=== PATIENT | female | born 1960 | race Caucasian/White ===

== ENCOUNTER 2019-07-14 18:02 | Observation (INO) | payer OTHER, SELFPAY ==
[2019-07-14] VITALS (14 sets, daily range): BP systolic 139–162; BP diastolic 75–99; PULSE 72–87; RESP 15–19; TEMP 36.8–36.9; O2SAT 97–100; BMI 32.0; BMI 34.1; BMI 33.7; BMI 33.8
--- NOTE | 2019-07-14 18:47 | CT_ITS ---
We are attempting to reach an attending provider to discuss findings. An addendum with communication details will be sent when the communication is complete. STUDY: CT BRAIN WITHOUT CONTRAST REASON FOR EXAM: Female, 59 years old. PRICE/DIZZINESS/APHASIA/STROKE ALERT RADIATION DOSAGE (If Supplied By Facility): CTDIvol = ( 44.99 ) mGy, DLP = ( 796.11 ) mGycm TECHNIQUE: Transaxial CT imaging of the brain was performed without administration of intravenous contrast material. Individualized dose optimization techniques were used for this CT. COMPARISON: No relevant priors. FINDINGS: Normal soft tissue structures. Normal calvarium. Normal size ventricles and extra-axial spaces for the patient''s age. Normal white matter tracts of the cerebral hemispheres. Normal basal ganglia and thalami. Normal brainstem. Normal cerebellum. There is no intracranial hemorrhage. There are no findings of an acute ischemic infarction. Normal visualized paranasal sinuses. CT/Brain/Head without Contrast IMPRESSION: Normal unenhanced CT scan of the brain. Electronically Signed: Abner Hope MD at 19:21 EDT , Service support ,
--- NOTE | 2019-07-14 18:47 | EKG12_ITS ---
Test Reason : NEURO Blood Pressure : / mmHG Vent. Rate : 078 BPM Atrial Rate : 078 BPM P-R Int : 134 ms QRS Dur : 076 ms QT Int : 384 ms P-R-T Axes : 036 003 044 degrees QTc Int : 437 ms Normal sinus rhythm Normal ECG Confirmed by JACOB LINDSEY, YRN ([id number]), senior technical editor CARMELA REAL ([id number] on 07/17/2019 3:58:11 PM Referred By: ROMAN Confirmed By:YRN JAMES MD
--- NOTE | 2019-07-14 18:48 | ED.RN ---
charge nurse notified by this rn of pt sx on arrival to ed.
--- NOTE | 2019-07-14 18:48 | ED.VIS.STROK ---
History of Present Illness Chief Complaint: Neuro S/Sx Informant: Patient Onset: Today Context: Sudden Onset Timing: Intermittent, Lasts - several hrs Quality and Location: Slurred Speech, Expressive Aphasia, - - vertigo Onset: sudden Current Severity: Gone Maximum Severity: Severe Worsened by: vertigo maybe worse w/ standing / certain positions Relieved by: unknown Associated Symptoms: Headache - earlier, gone now. Negative for: Nausea, Vomiting, Chest Pain Narrative: Patient states that she woke up this morning at 10 AM with numbness and tingling on both sides of her lower face, mostly her cheeks, along with some swelling in those areas. She states that her upper dentition was throbbing a little. These are symptoms that she has had with sinus issues frequently in the past. Couple hours later around noon, she was showing a neighbor some dresses that she wanted to borrow, and she had sudden onset of vertiginous symptoms and not feeling well, and subsequently had multiple episodes of expressive aphasia. The patient states that her noted this as well and was concerned, and she agrees that she was trying to spit out the words but was unable. They made an appointment with her doctor and was seen by her doctor, and her doctor was concerned about a stroke, sent patient to the ER. Patient arrived by private vehicle. She was placed in a room, and put in the queue during a very busy emergency department. Physician was not notified about the presence of a patient with acute neurologic symptoms. At the current time, however, she states the tingling in both sides of her face is improved compared with earlier, and she does not have the other neurologic symptoms. - Past Medical History (1) Hypertension Status: Chronic (2) Psoriatic arthritis Status: Chronic (3) Anxiety Status: Chronic (4) Hypothyroid Status: Chronic Past Medical History - Allergies and Home Meds Allergies/Adverse Reactions: Allergies Latex, Natural Rubber Adverse Reaction (Verified 07/14/19 18:03) Rash SEAFOOD Allergy (Uncoded 07/14/19 18:03) NEEDS FOLLOW-UP Primary Care Physician: Cedrick Barrera,Out of [NON-STAFF] - Lives: Spouse/ Significant Other Smoking Status: Former smoker Review of Systems General: Reports: Malaise. Denies: Chills, Fever, Sweats Eyes: Denies: Visual changes - bilaterally, Diplopia ENT: Reports: - - Facial swelling and numbness, see HPI. Denies: Bilateral ear pain, Rhinorrhea, Sore throat Cardiovascular: Denies: Chest pain, Palpitations Respiratory: Denies: Dyspnea, Cough, Dyspnea on exertion Gastrointestinal: Denies: Abdominal pain, Nausea, Vomiting, Diarrhea, Melena, Hematochezia Genitourinary: Denies: Dysuria, Hematuria, Frequency Musculoskeletal: Reports: Arthralgias - Chronic, stable. Denies: Neck pain, Back pain, Swelling, Extremity Pain Skin: Denies: Rash, Wounds Neurological: Reports: Headache - This morning, resolved, Numbness - Bilateral lower face, see HPI, - - Vertigo, resolved, - - Expressive aphasia, resolved. See HPI.. Denies: Weakness STROKE Vital Signs/Narrative: Vital Signs Temp Pulse Resp BP Pulse Ox 07/14/19 18:04 98.4 F 86 15 162/99 H 98 Inital Vital Signs reviewed: Yes - NIHSS Initial 1a Level of Consciousness: 0 1b LOC Questions (Score 2 if aphasic/stupor): 0 1c LOC Commands (Only score 1st attempt): 0 2 Best Gaze (If aphasic, use reflexive mvmts.): 0 3 Visual: 0 4 Facial Palsy: 0 5 Motor Arm Right (UN = amputation/fusion): 0 5 Motor Arm Left: 0 6 Motor Leg Right: 0 6 Motor Leg Left: 0 7 Limb ataxia (Only + if out of proportion): 0 8 Sensory (Aphasia/stupor=0 or 1, coma=2): 1 - Bilateral lower face only 9 Best Language: 0 10 Dysarthria (mute, coma=2, intubated=UN): 0 11 Extinction and Inattention (only scored if +): 0 Total Score: 1 General: Well nourished, Well developed, - - Well-appearing, NAD, conversive in full sentences Head: Normocephalic, Atraumatic Eyes: Perrl, EOMI ENT: Moist mucous membranes, No rhinorrhea Neck: Supple, Nontender, - - No carotid bruits bilaterally Cardiovascular: Regular rate, Regular rhythm, No murmurs. Negative for: Tachycardia Respiratory: No distress, CTA bilaterally, Chest nontender Abdomen: Soft, Nontender, Nondistended, Normal bowel sounds Back: Nontender, Normal Inspection Extremities: Nontender, No edema Skin: Normal color, No rash, No Trauma Neurological: Alert, Oriented x3, Cranial nerves II-XII grossly intact, Normal Strength, Parasthesia, - - Normal [id number] and [id number]-[id number] Psychological: Normal affect, Normal Mood Diagnostic/Tx/Re-eval Clinical Impression(s) from Imaging Studies Brain CT 07/14/19 18:47 IMPRESSION: Normal unenhanced CT scan of the brain. Electronically Signed: Abner Hope MD at 19:21 EDT , Service support , ADDENDUM: 07/14/19 1930 IMPRESSION: Normal unenhanced CT scan of the brain. N.B. : The above information has been verbally conveyed by Abner Hope MD to Harshad Cooley MD, on 07/14/2019 19:23:42 (ET). Electronically Signed: Abner Hope MD at 19:21 EDT , Service support , Laboratory Tests 07/14/19 07/14/19 07/14/19 Range/Units 20:54 20:54 19:28 WBC 14.2 H (4.4-11.0) K/mm3 RBC 4.80 (4.2-5.4) M/mm3 Hgb 13.5 (12.0-15.0) g/dL Hct 41.1 (37-47) % MCV 85.6 (81-99) fL MCH 28.1 (27.0-32.0) pg MCHC 32.8 (32-36) g/dL RDW Std Deviation 44.5 H (35.1-43.9) fl RDW Coeff of Anatoly 14.3 (11.6-14.6) % Plt Count 218 (150-450) K/mm3 MPV 11.2 (6.2-12.0) fl Immature Gran % (Auto) 0.400 (0.0-0.9) % Neut % (Auto) 66.4 (47-70) % Lymph % (Auto) 24.8 (19-41) % [place] % (Auto) 6.6 (0-10) % Eos % (Auto) 1.2 (0-5) % Baso % (Auto) 0.6 (0-1) % Absolute Neuts (auto) 9.4 H (2.0-7.7) X10^3/uL Absolute Lymphs (auto) 3.51 (0.83-4.51) X10^3/uL Nucleated RBC % 0 (0-5) % Sodium 140 (136-145) mmol/L Potassium 3.4 L (3.5-5.1) mmol/L Chloride 107 (98-107) mmol/L Carbon Dioxide 28.0 (21.0-32.0) mmol/L Anion Gap 5 (5-15) BUN 16 (7-18) mg/dL Creatinine 0.74 (0.55-1.02) mg/dL Estim Creat Clear Calc 64.74 ml/min Est GFR (MDRD) Af Amer 104 (>60) mL/min Est GFR (MDRD) Non-Af 86 (>60) mL/min BUN/Creatinine Ratio 21.7 H (10-20) RATIO Glucose 114 H (74-106) mg/dL Calcium 9.3 (8.5-10.1) mg/dL Troponin I < 0.015 (<0.045) ng/mL POC Glucose 104 (70-110) mg/dL - Medical Decision Making Stroke Team Activated: Yes - Upon completion of my initial evaluation Was Patient considered for Endovascular Intervention?: No - Unable to perform CTA IV Alteplase (t-PA) Administered: No - Out of IV TPA window Patient has an NIH of 1, that is for numbness to her face, which I do not think is stroke-related and is a red mckeon in this particular situation. Her concerning symptoms are resolved right now. We are unable to get an IV in a timely fashion in this patient, so CT was performed plain instead of performing that along with CTA which was intended. I discussed with stroke neurology at [facility], and given the scenario they advise admitting for MRI/MRA, if negative then yes she can probably be safely discharged home, otherwise she can continue to have further stroke work-up. I will have the nurses see if they can get an external jugular IV in, or at least something in her hand or thumb. Discussed with patient she is comfortable with this plan. Worse case scenario this was a TIA, however it is possible that she was feeling very poorly from peripheral vertigo, somehow mimicking a aphasia. She does not currently have any objective cortical signs. Unfortunately nurses were not able to obtain a peripheral IV, patient refuses central line, and refuses to have further attempts, patient states they have tried 12 times. We did get blood, there is a nonspecific leukocytosis, her blood sugar is normal, she does not have clinical evidence of a bacterial sinusitis, but it is possible that she has it. She is amenable to stay if she does not need an IV. I discussed with Dr. De Dios who was amenable to that, will admit to observation PCU. Critical care time (excluding procedures): 30-74 minutes - 35 minutes, including time spent discussing with patient, consultants, arranging admission, performing direct patient care and reevaluation at the bedside. ED Disposition - Plan for ED Patient: Disposition: Acute Care Hospital [facility] Diagnosis: Expressive aphasia, Vertigo, Sinus congestion Referrals: [facility] Doctor,Out of [NON-STAFF] -
--- NOTE | 2019-07-14 19:02 | ED.RN ---
STROKE ALERT CALLED PER REQUEST OF DR OWENS AT [phone]
--- NOTE | 2019-07-14 19:05 | CM.ED ---
SOCIAL WORK RESPONDED TO STROKE ALERT. NO FAMILY AT BEDSIDE. THIS WORKER TO REMAIN AVAILABLE FOR NEEDS. Delphine DUBOIS, DYNAMITE PACKING MACHINE FEEDER, DIRECTOR OF CAREER RESOURCES.
[2019-07-14 19:30] LABS: Bedside Glucose 104 mg/dL (70-110)
[2019-07-14 21:19] LABS: Absolute Lymphocyte Count 3.51 X10^3/uL (0.83-4.51); Absolute Neutrophil Count 9.4 X10^3/uL (2.0-7.7); Basophil# 0.08 X10^3/uL; Basophil% 0.6 % (0-1); Eosinophil# 0.17 X10^3/uL; Eosinophils% 1.2 % (0-5); Hematocrit 41.1 % (37-47); Hemoglobin 13.5 g/dL (12.0-15.0); Lymphocyte # 3.51 X10^3/ul (4.0); Lymphocyte % 24.8 % (19-41); Mean Corp Hgb Conc 32.8 g/dL (32-36); Mean Corpuscular Hgb 28.1 pg (27.0-32.0); Mean Corpuscular Volume 85.6 fL (81-99); Mean Platelet Vol. 11.2 fl (6.2-12.0); Monocyte# 0.94 X10^3/uL; Monocyte% 6.6 % (0-10); NRBC Flagged by Analyzer 0 % (0-5); Neutrophil # 9.42 X10^3/uL (2.7-7.7); Neutrophil % 66.4 % (47-70); Platelet Count 218 K/mm3 (150-450); RBC Distribution Width CV 14.3 % (11.6-14.6); RBC Distribution Width SD 44.5 fl (35.1-43.9); White Blood Count 14.2 K/mm3 (4.4-11.0)
[2019-07-14 21:21] LABS: Anion Gap 5 (5-15); BUN 16 mg/dL (7-18); BUN/Creat Ratio 21.7 RATIO (10-20); Calcium,Total 9.3 mg/dL (8.5-10.1); Chloride 107 mmol/L (98-107); Creatinine, Serum 0.74 mg/dL (0.55-1.02); EST Glomerular Filtration Rate 86 mL/min (>60); Est Glom Filt Rate - Afr Amer 104 mL/min (>60); Estimated Creatinine Clearance 64.74 ml/min; Glucose 114 mg/dL (74-106); Potassium 3.4 mmol/L (3.5-5.1); Sodium Level 140 mmol/L (136-145)
--- NOTE | 2019-07-14 21:21 | HP.PCM_ITS ---
Problem List (1) TIA (transient ischemic attack) Status: Acute (2) Acute sinusitis Status: Acute Qualifiers: Sinusitis location: maxillary Recurrence: not specified as recurrent Qualified Code(s): J01.00 - Acute maxillary sinusitis, unspecified (3) GERD (gastroesophageal reflux disease) Status: Chronic Qualifiers: Esophagitis presence: esophagitis presence not specified Qualified Code(s): K21.9 - Gastro-esophageal reflux disease without esophagitis (4) Hypertension Status: Chronic Qualifiers: Hypertension type: essential hypertension Qualified Code(s): I10 - Essential (primary) hypertension (5) Psoriatic arthritis Status: Chronic (6) Anxiety Status: Chronic (7) Hypothyroid Status: Chronic Qualifiers: Hypothyroidism type: unspecified Qualified Code(s): E03.9 - Hypothyroidism, unspecified (8) Former tobacco use Status: Chronic History of Present Illness Date of Admission: 07/14/19 Chief Complaint: Dysarthria, facial paresthesias The patient is a 59 y/o F w/ PMHx: Obesity, HTN, GERD, Hypothyroidism, Psoriatic arthritis, Anxiety, Chronic sinus issues who presents to the [facility] [place] ED on 07/14/19 with history of mild tingling in BL cheek and mild facial swelling with history of sinus issues and congestion with worsened recent congestion and BL maxillary sinus tenderness with self initiation of her flonase secondary to worsened symptoms recently; however, she then also had onset of aphasia and lightheadedness/dizziness starting at noon but this resolved with NIH 1 upon presentation secondary to BL facial tingling ongoing. Work-up in the ED included T 90.4, heart rate 86, BP 162/99, respiratory rate 15, 98% on room air, CBC with WC 14.2, hemoglobin 13.5, platelet 218 with left shift, BMP with potassium 3.4, glucose 114, troponin less than 0.015, CT of the brain no acute intracranial findings, EKG with sinus rhythm. In the ED patient ministered normal saline. In the ED patient had difficulty with IV access and several attempts were made. Patient eventually refused any further attempts. Lengthy discussion with patient given symptoms and decision to admit with planned MRI of the brain as well as MRA of the head and neck to which she was amenable and avoidance of any further lab checks this evening but would plan again lab assessment in a.m. but defer any intravenous agents. Past Medical History Past Medical History (Chronic Problems): Chronic Problems Hypertension (Chronic) Psoriatic arthritis (Chronic) Anxiety (Chronic) Hypothyroid (Chronic) GERD (gastroesophageal reflux disease) (Chronic) Former tobacco use (Chronic) Allergies Latex, Natural Rubber Adverse Reaction (Verified 07/14/19 18:03) Rash SEAFOOD Allergy (Uncoded 07/14/19 18:03) NEEDS FOLLOW-UP Home Medications: Ambulatory Orders Medication Instructions Recorded Amlodipine [Norvasc] 5 mg PO DAILY 07/14/19 Apremilast [Otezla] 30 mg PO BID 07/14/19 Fluticasone 0.05% [Flonase Nasal 1 spray NASAL BID 07/14/19 [place]] Levothyroxine [Synthroid] 125 mcg PO DAILY 07/14/19 Olmesartan/Hydrochlorothiazide 1 ea PO DAILY 07/14/19 [Olmesartan-Hctz 40-12.5 mg Tab] RX: Omeprazole 40 mg PO DAILY 07/14/19 Surgical History: - - Cholecystectomy, tonsillectomy, bilateral breast reduction. 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 Tobacco Use: Non-smoker Alcohol: None Drugs: None - *Family History Maternal History Items: - - Patient notes maternal family history of thyroid disease. Paternal History Items: - - Patient notes a paternal family history of hypertension and diabetes. Review of Systems Constitutional: Reports: Fatigue. Denies: Anorexia, Chills, Fever, Malaise, Weakness, Weight Change HEENT: Reports: Nasal Congestion, Sinus Congestion, Sinus Drainage, - - Bilateral maxillary sinus tenderness., - - Bilateral facial maxillary sinus region paresthesias.. Denies: Head Aches Cardiovascular: Denies: Chest Pain, Palpitations Respiratory: Denies: Cough, Shortness of breath at rest, Sputum production Gastrointestinal: Denies: Abdominal Pain, Nausea, Vomiting Genitourinary: Denies: Dysuria Musculoskeletal: Denies: Joint Pain, Joint Tenderness Skin: Denies: Rash, Wounds Neurological: Reports: Change in Speech - Aphasic., Tingling. Denies: Focal weakness, Numbness Psychiatric: Reports: Anxiety. Denies: Depression, Homicidal Ideations, Suicidal Ideations Hematologic/ Lymphatic: Denies: Easy Bruising, Easy Bleeding VTE Information - Inpt Only VTE Present on Admission: No VTE Mechan Device Prophylaxis: SCD's VTE Pharm Prophylaxis ordered?: Yes Patient Problems: Active and Suspected Problems Expressive aphasia (Acute) Vertigo (Acute) Sinus congestion (Acute) TIA (transient ischemic attack) (Acute) Acute sinusitis (Acute) Subjective: Seated upright in the ED bed, fatigued and mildly irritable. Objective: Physical Examination: General: awake, alert, oriented x 3 and cooperative, seated upright in the ED bed, no obvious distress, fatigued appearing. Skin: normal color, turgor, no icterus, cyanosis. HEENT: AT/NC, EOMI, PERRLA, mildly dry, posterior OP erythema, significant bilateral maxillary sinus region tenderness with palpation, no carotid bruits or JVD noted, subjective paresthesias bilateral maxillary regions. Lungs: CTA bilaterally, moderate effort, mild decrease BL bases, no rales, ronchi or wheezing. Heart: Regular rate and rhythm; no gallop, rub audible. Abdomen: soft, obese, NTTP, ND, normal BS, no HSM. Extremities: no cyanosis, clubbing, or edema. Neurological: patient awake, alert, oriented x 3; cognitive function is baseline intact; pupils equally reactive to light and accomodation; cranial nerves II-XII grossly normal subjective paresthesias bilateral cheek regions, [id number]-[id number] a nd kydh-[id number] appropriate bilaterally, negative Babinski, moving all 4 extremities, no focal deficits, strength preserved Psychiatric: affect appears mildly fatigued and irritable, no acute evidence of depressive or anxiety feelings. - Physical Exam Vitals/I&O's: Vital Signs Temp Pulse Resp BP Pulse Ox 98.4 F 82 18 153/80 H 99 07/14/19 18:04 07/14/19 21:00 07/14/19 21:00 07/14/19 21:00 07/14/19 21:00 Oxygen Delivery Method Room Air Weight: 186 lb 11.704 oz Body Mass Index (BMI) 34.1 Finger Stick Blood Glucose 104 Laboratory Results 07/14/19 19:28: POC Glucose 104 07/14/19 20:54: WBC 14.2 H, RBC 4.80, Hgb 13.5, Hct 41.1, MCV 85.6, MCH 28.1, MCHC 32.8, RDW Std Deviation 44.5 H, RDW Coeff of Anatoly 14.3, Plt Count 218, MPV 11.2, Immature Gran % (Auto) 0.400, Neut % (Auto) 66.4, Lymph % (Auto) 24.8, [place] % (Auto) 6.6, Eos % (Auto) 1.2, Baso % (Auto) 0.6, Absolute Neuts (auto) 9.4 H, Absolute Lymphs (auto) 3.51, Nucleated RBC % 0 07/14/19 20:54: Sodium Pending, Potassium Pending, Chloride Pending, Carbon Mark xide Pending, Anion Gap Pending, BUN Pending, Creatinine Pending, Est GFR (MDRD) Af Amer Pending, Est GFR (MDRD) Non-Af Pending, BUN/Creatinine Ratio Pending, Glucose Pending, Calcium Pending, Troponin I Pending Current Medications Sodium Chloride 1,000 ml/ N/A 1,000 mls @ 84.7 mls/hr IV .[id number] BOGDAN Stop: 07/15/19 18:51 Labetalol HCl (Trandate) 20 mg IV X1 PRN PRN Reason: BLOOD PRESSURE Assessment/Plan All Active Problems Expressive aphasia (Acute) Vertigo (Acute) Sinus congestion (Acute) TIA (transient ischemic attack) (Acute) Acute sinusitis (Acute) The patient is a 59 y/o F w/ PMHx: Obesity, HTN, GERD, Hypothyroidism, Psoriatic arthritis, Anxiety, Chronic sinus issues who presents to the [facility] [place] ED on 07/14/19 with history of mild tingling in BL cheek and mild facial swelling with history of sinus issues and congestion with worsened recent congestion and BL maxillary sinus tenderness with self initiation of her flonase secondary to worsened symptoms recently; however, she then also had onset of aphasia and lightheadedness/dizziness starting at noon but this resolved with NIH 1 upon presentation secondary to BL facial tingling ongoing. 1. Aphasia and paresthesias concerning for Possible TIA, CVA: Will admit to PCU to be cautious, will obtain MRI Brain, MRA Head and Neck, ECHO, PT/OT/Speech/Nutrition evaluation per protocol. Will allow permissive HTN, maintain on asa, obtain AM FLP, fall precautions. Mag, TSH, HgbA1c requested to be added to ED labs and if unable will plan to obtain in AM given patient refusal of any further lab testing this evening and again declined any further IV placement attempts or central line. 2. Suspected Acute Sinusitis: Suspect this is etiology for her facial pare sthesias, edema, congestion and worsening symptoms recently as well as possible presentation with noted CBC with mild WC elevation and shift, Will continue Flonase, discussed initiation of oral antibiotic therapy however patient adamantly declined as she noted she had C. difficile the year prior. Courage aggressive [place] pot usage which patient notes she is familiar with. 3. Hypokalemia: Admission K+ 3.4, magnesium requested, supplementation given, repeat level in AM. 4. Hypothyroidism: Continue home synthroid regimen, TSH pending. 5. Hypertension: We will maintain on permissive and once appropriate add back patient home Norvasc, olmesartan, hydrochlorothiazide, PRN agents if significantly elevated per #1. 6. GERD: We will continue patient home PPI. 7. Psoriatic arthritis: We will continue patient home apremilast regimen. 8. DVT prophylaxis: SCDs, Lovenox. OBSV E&M: 65020 Initial observation care L3
--- NOTE | 2019-07-14 22:30 | NURSING ---
Pt. came to PCU from ED with no IV access. Pt. stated they Stuck me 10 times, no more. Pt. refusing any further sticks for tonight, including labs. IVF ordered and unable to run. Pt. states she was told in ED to drink a lot of water
--- NOTE | 2019-07-14 23:09 | ECHOD_ITS ---
Reason For Study: TIA/CVA Procedure This was a 2D Doppler, Color Flow transthoracic echocardiogram. The exam was of adequate technical quality. Exam performed portable in patient room. Left Ventricle Normal LV size. Left ventricular systolic function is normal. The estimated ejection fraction is 60 %. No evidence for diastolic dysfunction. No regional wall motion abnormalities noted. Right Ventricle Normal RV size. Normal systolic function. Atria Normal left atrium. Normal right atrium. No doppler evidence for ASD. Mitral Valve There is mild mitral annular calcification. Normal mitral valve. Mild (1+) mitral valve insufficiency. Tricuspid Valve Normal tricuspid valve. Mild tricuspid valve insufficiency. Right ventricular systolic pressure estimated to be 22 mmHg. Aortic Valve Trisinus/trileaflet aortic valve. Normal aortic valve. Pulmonic Valve The pulmonic valve is not well visualized. Trivial pulmonic valve insufficiency. Great Vessels Normal sized aortic root. Pericardium/Pleural No pericardial effusion. Medication No IV access available for bubble study or Definity. MMode/2D Measurements & Calculations LVIDd: 4.2 cm IVSd: 0.67 cm Ao root diam: 3.0 cm LVIDs: 2.9 cm LVPWd: 0.78 cm LA dimension: 3.7 cm RVDd: 3.1 cm FS: 32.6 % LAV(MOD-bp): 50.6 ml LA A4 area: 18.4 cm2 RA A4 area: 12.9 cm2 LAV(MOD-bp) Indexed: 27.3 ml/m2 LAV(MOD-sp2): 49.2 ml LAV(MOD-sp4): 51.5 ml Doppler Measurements & Calculations MV E max talon: 85.5 cm/sec Lat Peak E' Talon: 9.5 cm/sec Med Peak E' Talon: 7.0 cm/sec MV A max talon: 93.0 cm/sec E/E' lat: 9.0 E/E' med: 12.2 MV E/A: 0.92 Ao V2 max: 127.7 cm/sec LV V1 max: 107.4 cm/sec PA V2 max: 88.2 cm/sec Ao max P.5 mmHg LV V1 max P.6 mmHg TR max talon: 218.4 cm/sec TR max P.1 mmHg Interpretation Summary Left ventricular systolic function is normal. The estimated ejection fraction is 60 %. There is mild mitral annular calcification. Mild (1+) mitral valve insufficiency. Mild tricuspid valve insufficiency. Trivial pulmonic valve insufficiency. Right ventricular systolic pressure estimated to be 22 mmHg. No evidence for diastolic dysfunction. Ordering Physician: Tona De Dios Referring Physician: NAV CORTÉS Performed By: Shari Walker RDCS
[2019-07-14 23:40] LABS: T4 Free Direct 1.26 ng/dL (0.76-1.46)
[2019-07-14] MEDS: Fluticasone 0.05% 1 SPRAY NASAL.SRY NASAL (23:44)
[2019-07-14] MEDS: Acetaminophen 325 MG Tablet 650 MG PO (23:57)
[2019-07-14 23:59] LABS: Hemoglobin A1c 5.3 % (4.2-6.3)
[2019-07-15 02:30] VITALS: BP 139/84; PULSE 71; RESP 18; TEMP 36.7; O2SAT 95
[2019-07-15 02:59] VITALS: PULSE 66
[2019-07-15 06:08] LABS: Absolute Lymphocyte Count 3.02 X10^3/uL (0.83-4.51); Absolute Neutrophil Count 6.3 X10^3/uL (2.0-7.7); Basophil# 0.07 X10^3/uL; Basophil% 0.7 % (0-1); Eosinophil# 0.13 X10^3/uL; Eosinophils% 1.3 % (0-5); Hemoglobin 12.5 g/dL (12.0-15.0); Lymphocyte # 3.02 X10^3/ul (4.0); Lymphocyte % 29.4 % (19-41); Mean Corp Hgb Conc 32.1 g/dL (32-36); Mean Corpuscular Hgb 27.7 pg (27.0-32.0); Mean Corpuscular Volume 86.3 fL (81-99); Mean Platelet Vol. 10.9 fl (6.2-12.0); Monocyte# 0.71 X10^3/uL; Monocyte% 6.9 % (0-10); NRBC Flagged by Analyzer 0 % (0-5); Neutrophil % 61.4 % (47-70); Platelet Count 262 K/mm3 (150-450); RBC Distribution Width CV 14.5 % (11.6-14.6); RBC Distribution Width SD 45.5 fl (35.1-43.9); Red Blood Count 4.52 M/mm3 (4.2-5.4); White Blood Count 10.3 K/mm3 (4.4-11.0)
[2019-07-15 06:16] LABS: Prothrombin Time (Protime)PT. 13.1 SECONDS (11.7-14.9)
[2019-07-15 06:17] LABS: Partial Thromboplast Time 30.6 Seconds (24.1-36.2)
[2019-07-15 06:30] VITALS: BP 149/85; PULSE 69; RESP 18; TEMP 36.6; O2SAT 97
[2019-07-15 06:31] LABS: Anion Gap 7 (5-15); BUN 12 mg/dL (7-18); BUN/Creat Ratio 19.2 RATIO (10-20); Calcium,Total 8.8 mg/dL (8.5-10.1); Chloride 108 mmol/L (98-107); Cholesterol 163 mg/dL (200); Creatinine, Serum 0.62 mg/dL (0.55-1.02); EST Glomerular Filtration Rate 104 mL/min (>60); Est Glom Filt Rate - Afr Amer 126 mL/min (>60); Estimated Creatinine Clearance 77.27 ml/min; Glucose 100 mg/dL (74-106); High Density Lipoprotein 47 mg/dL; Potassium 3.7 mmol/L (3.5-5.1); Sodium Level 140 mmol/L (136-145); Triglycerides 87 mg/dL; Very Low Density Lipoprotein 17 mg/dL (5-40)
[2019-07-15] MEDS: Levothyroxine 125 MCG Tablet PO (06:53)
[2019-07-15 07:00] VITALS: PULSE 57
--- NOTE | 2019-07-15 07:03 | MRI_ITS ---
STUDY: MRI BRAIN WITHOUT CONTRAST REASON FOR EXAM: Female, 59 years old. cva, facial tingling, aphasia, lightheaded TECHNIQUE: Standardized multiplanar fat and water weighted pulse sequences were obtained. COMPARISON: None. FINDINGS: Normal size of the ventricles and extra-axial spaces for the patient''s age. There are a limited number of small white matter hyperintensities, distributed throughout the deep white matter tracts of the cerebral hemispheres, consistent with mild chronic white matter ischemic changes. Normal bilateral basal ganglia. Normal thalami. There is no extra-axial fluid accumulation. Normal flow voids within the major intracranial circulation suggesting patency by spin echo criteria. Normal sella turcica, pituitary gland, infundibular stalk, optic chiasm and hypothalamus. Normal tectal plate and pineal gland. Normal midbrain, zhao and medulla. Normal cerebellum. Normal basal cisterns. Normal bilateral temporal bones. Normal bilateral internal auditory canals. No demonstrated orbital abnormality, within the constraints of a routine brain study. Normal visualized paranasal sinuses. Normal calvarium and skull base. Normal visualized soft tissue structures. Normal visualized upper cervical spine. MRI/Brain without Contrast IMPRESSION: Involutional changes of the brain, as described above. Electronically Signed: Josh Cordero, at 11:23 EDT Tel , Service support ,
--- NOTE | 2019-07-15 07:15 | MRI_ITS ---
STUDY: MRA NECK WITHOUT CONTRAST REASON FOR EXAM: Female, 59 years old. cva, facial tingling, aphasia, lightheadedness TECHNIQUE: Source images were obtained, MIPs were performed. The study was performed unenhanced. COMPARISON: None. FINDINGS: RIGHT CAROTID ARTERIES: Normal right common carotid artery (CCA). Normal right common carotid bulb. Normal origin of the right internal carotid (ICA) artery without a hemodynamically significant stenosis. Normal visualized cervical portion of the right internal carotid artery. Normal origin of the right external carotid artery (ECA). LEFT CAROTID ARTERIES: Normal left common carotid artery (CCA). Normal left common carotid bulb. Normal origin of the left internal carotid (ICA) artery without a hemodynamically significant stenosis. Normal visualized cervical portion of the left internal carotid artery. Normal origin of the left external carotid artery (ECA). VERTEBRAL ARTERIES: Normal antegrade flow within the bilateral vertebral artery without a hemodynamically significant stenosis. MRI/MRA Neck without Contrast IMPRESSION: Normal bilateral cervical carotid and vertebral arteries. Electronically Signed: Luz Koenig, at 10:00 EDT Tel , Service support ,
--- NOTE | 2019-07-15 07:15 | MRI_ITS ---
STUDY: MRA OF THE HEAD WITHOUT CONTRAST REASON FOR EXAM: Female, 59 years old. cva, facial tingling, aphasia, lightheaded TECHNIQUE: 3-D [id number] (TOF) imaging was performed with MIPs. The study was performed unenhanced. COMPARISON: None. FINDINGS: Normal bilateral petrous carotid arteries. Normal right cavernous carotid artery with a normal supraclinoid bifurcation. Normal left cavernous carotid artery with a normal supraclinoid bifurcation. Normal right A1 segments of the anterior cerebral artery. Normal left A1 segments of the anterior cerebral artery. Normal intact anterior communicating artery (ACOM). Normal bilateral A2 segments of the anterior cerebral arteries. Normal right M1 and M2 segments of the middle cerebral arteries, with a normal M1 bifurcation. Normal left M1 and M2 segments of the middle cerebral arteries, with a normal M1 bifurcation. Normal right posterior communicating artery (PCOM). There is non-visualization of the left posterior communicating artery (PCOM). Normal bilateral vertebral arteries. Normal basilar artery with a normal basilar bifurcation. The visualized bilateral superior cerebellar (SCA) arteries are normal. Normal bilateral P1, P2 and visualized P3 segments of the posterior cerebral arteries. There is no demonstrated aneurysm of the [place]. There is no major vessel occlusion or hemodynamically significant stenosis. There is no demonstrated abnormality of the visualized brain. MRI/MRA Head ONLY without Contrast IMPRESSION: No significant stenosis of the intracranial arteries. Electronically Signed: Josh Cordero, at 11:37 EDT Tel , Service support ,
[2019-07-15] MEDS: LORazepam 1 MG Tablet PO (07:26)
[2019-07-15 08:59] LABS: Free T3 1.7 pg/mL (2.18-3.98)
[2019-07-15 09:06] VITALS: O2SAT 97
[2019-07-15] MEDS: Fluticasone 0.05% 1 SPRAY NASAL.SRY NASAL (09:37)
[2019-07-15] MEDS: Enoxaparin 40 MG/0.4 ML Syringe SC (09:37)
[2019-07-15] MEDS: Aspirin 81 MG TAB.CHEW PO (09:37)
[2019-07-15] MEDS: Pantoprazole Sodium 40 MG Tablet PO (09:38)
[2019-07-15 10:30] VITALS: BP 135/67; PULSE 77; RESP 12; TEMP 36.6; O2SAT 99
--- NOTE | 2019-07-15 13:05 | NURSING ---
updated on POC
--- NOTE | 2019-07-15 13:52 | CASEMGMT ---
SW completed a PHQ9 with patient as she may have had a TIA. Patient scored a 9 which indicates mild Depression. She declined any resources for counseling. She has tried counseling with 2 different counselors and it did not work out. She said she has tried numerous Depression medications and she did not like how they made her feel. Trish LE MSW
--- NOTE | 2019-07-15 14:39 | CHAPLAIN ---
Type of Pastoral Visit _x__ Initial Visit ___ Follow-up Visit ___ On-call Visit ___ General Patient Visit ___ Spiritual Assessment ___ Family Conference ___ Bereavement ___ Rapid Response ___ Code Blue ___ Other (describe below) Pastoral Care Referral From _x__ Patient ___ Family ___ Nurse ___ Physician ___ [place] Manager ___ [employer] _x__ Other (describe below) Sacrament/Intervention _x__ Active listening ___ Anointing ___ Zoroastrian ___ Bereavement ___ Communion ___ Monica exploration ___ ___ Life review _x__ Prayer ___ Reconciliation ___ Sacrament of Sick _x__ Supportive presence ___ Wedding ___ Other (describe below) Pastoral Comments
--- NOTE | 2019-07-15 15:26 | DCINST_ITS ---
- Discharge Diagnoses Current Active Problems: Current Active and Chronic Problems Expressive aphasia (Acute) Vertigo (Acute) Sinus congestion (Acute) TIA (transient ischemic attack) (Acute) Acute sinusitis (Acute) GERD (gastroesophageal reflux disease) (Chronic) Former tobacco use (Chronic) You will use the following diet at home:: Cardiac Your food should be the consistency of: Regular Your liquids should be the consistency of: Regular/Thin Discharge Activity: Return to Normal Activity Allergies/Adverse Reactions: Allergies Latex, Natural Rubber Adverse Reaction (Verified 07/14/19 18:03) Rash SEAFOOD Allergy (Uncoded 07/14/19 18:03) NEEDS FOLLOW-UP Medications to take at Discharge Amlodipine [Norvasc] 5 mg PO DAILY 07/14/19 Apremilast [Otezla] 30 mg PO BID 07/14/19 Fluticasone 0.05% [Flonase Nasal [place]] 1 spray NASAL BID 07/14/19 Levothyroxine [Synthroid] 125 mcg PO DAILY 07/14/19 Olmesartan/Hydrochlorothiazide [Olmesartan-Hctz 40-12.5 mg Tab] 1 ea PO DAILY 07/14/19 Omeprazole 40 mg PO DAILY 07/14/19 Acetaminophen [Tylenol Tablet] 650 mg PO Q6H PRN PRN tablet 07/15/19 Propranolol HCl [Inderal (Beta Ralph)] 40 mg PO BID #60 tab 07/15/19 The following prescriptions were given: Propranolol HCl [Inderal (Beta Ralph)] 40 mg PO BID #60 tab Transmission Status: Pending to [facility] Primary Care Physician: [facility] Doctor,Out of [NON-STAFF] - Please follow up with your Primary Care Physician in: 1-2 weeks Test Results: Test results from this visit will be discussed in further detail at your follow- up appointment, if applicable. Please Follow Up With: Kamran Julien MD - Neurology, re: migraines When: 2 weeks
--- NOTE | 2019-07-15 15:28 | PCM.DC.SUM ---
<Molina Briceno - Last Filed: 07/15/19 15:28> Discharge Date and Diagnosis Date of Admission: 07/14/19 Date of Discharge: 07/15/19 - Primary Discharge Diagnosis Active and Suspected Problems Complex migraine TIA/CVA ruled out Psoriatic arthritis HTN GERD Hypothyroidism Obesity - Secondary Discharge Diagnosis Chronic Problems Hypertension (Chronic) Psoriatic arthritis (Chronic) Anxiety (Chronic) Hypothyroid (Chronic) GERD (gastroesophageal reflux disease) (Chronic) Former tobacco use (Chronic) Hospital Course and Treatment Imaging Results: ADDENDUM by Dr. Abner Hope MD on 07/14/[address]/Brain/Head without Contrast IMPRESSION: Normal unenhanced CT scan of the brain. MRI/Brain without Contrast IMPRESSION: Involutional changes of the brain, as described above. MRI/MRA Head ONLY without Contrast IMPRESSION: No significant stenosis of the intracranial arteries. MRI/MRA Neck without Contrast IMPRESSION: Normal bilateral cervical carotid and vertebral arteries. 2D TTE: Pending at this time Consults: Neuro: SOC tele neuro Operations: None Procedures: 2-D Echocardiogram Summary of Care Provided: Hospital course: The patient is a 59 year old F with pmhx of occular migraine, psoriatic arthritis, HTN, hypothyroid who presented to the ER with c/o bilateral facial parasthesias, dizziness, and dysarthria that she woke up with. She came to the ER and a CT brain was done with no acute issues, troponin was negative, she had leukocytosis at 14.2, and vitals were notable for elevated BP at 162/99. Her symptoms had resolved, so she was admitted with concern for TIA. She had no events on tele. The following day MRI brain had no acute changes and MRA head and neck were unremarkable. She revealed that she had also been having occular migraines increasing in frequency lately, marked by headache and visual disturbances of wavy lines in her vision. Tele neuro was consulted and felt the patient was indeed having migraines and noted that these were likely a result of her otezla. The patient was not interested in discontinuing otezla. At this point, she has no acute migraine requiring abortive therapy. Neurology recommended initiation of prophylactic therapy with Propranolol 40 BID and follow up as an outpatient with neurology. I recommended she follow up with Dr. Julien in 2 weeks and with her PCP in 1-2 weeks. She was discharged home in stable condition. Echo is pending at this time. This patient was seen by Molina Briceno PA-C under the supervision of Doctor Dennys. [] - Physical Exam Vitals/I&O's: Vital Signs Temp Pulse Resp BP Pulse Ox 97.8 F 77 12 135/67 H 99 07/15/19 10:30 07/15/19 10:30 07/15/19 10:30 07/15/19 10:30 07/15/19 10:30 Oxygen Delivery Method Room Air Weight: 184 lb 11.958 oz Body Mass Index (BMI) 33.7 Finger Stick Blood Glucose 104 Intake and Output for Last 24 Hours 07/13/19 07/14/19 07/15/19 23:59 23:59 23:59 Intake Total 650 / 650 Balance 650 / 650 General: Alert, Oriented x3, Cooperative HEENT: Atraumatic, PERRLA, EOMI, Normocephalic Neck: Supple, No JVD, Negative Carotid Bruits Lungs: Clear to auscultation, Normal air movement Cardiovascular: Regular rate, No murmurs Abdomen: Bowel Sounds Present, Soft, Non Tender Extremities: No edema, Capillary Refill Less than 3 Seconds Skin: No rashes, No breakdown Musculoskeletal: No Tenderness to Palpation of Joints or Extremities Neurological: Cranial nerves II-XII grossly intact Psych/Mental Status: Normal Affect, Appropriate, Alert and oriented to time, place, person, mood and affect Laboratory Results 07/14/19 19:28: POC Glucose 104 07/14/19 20:54: WBC 14.2 H, RBC 4.80, Hgb 13.5, Hct 41.1, MCV 85.6, MCH 28.1, MCHC 32.8, RDW Std Deviation 44.5 H, RDW Coeff of Anatoly 14.3, Plt Count 218, MPV 11.2, Immature Gran % (Auto) 0.400, Neut % (Auto) 66.4, Lymph % (Auto) 24.8, Harney % (Auto) 6.6, Eos % (Auto) 1.2, Baso % (Auto) 0.6, Absolute Neuts (auto) 9.4 H, Absolute Lymphs (auto) 3.51, Nucleated RBC % 0 07/14/19 20:54: Sodium 140, Potassium 3.4 L, Chloride 107, Carbon Dioxide 28.0, Anion Gap 5, BUN 16, Creatinine 0.74, Estim Creat Clear Calc 64.74, Est GFR (MDRD) Af Amer 104, Est GFR (MDRD) Non-Af 86, BUN/Creatinine Ratio 21.7 H, Glucose 114 H, Calcium 9.3, Troponin I < 0.015 07/14/19 20:54: Magnesium 2.0, TSH 27.20 H, Free T4 1.26 07/14/19 20:54: Hemoglobin A1c 5.3 07/15/19 05:24: PT 13.1, INR 1.0, APTT 30.6 07/15/19 05:24: WBC 10.3, RBC 4.52, Hgb 12.5, Hct 39.0, MCV 86.3, MCH 27.7, MCHC 32.1, RDW Std Deviation 45.5 H, RDW Coeff of Anatoly 14.5, Plt Count 262, MPV 10.9, Immature Gran % (Auto) 0.300, Neut % (Auto) 61.4, Lymph % (Auto) 29.4, Harney % (Auto) 6.9, Eos % (Auto) 1.3, Baso % (Auto) 0.7, Absolute Neuts (auto) 6.3, Absolute Lymphs (auto) 3.02, Nucleated RBC % 0 07/15/19 05:24: Sodium 140, Potassium 3.7, Chloride 108 H, Carbon Dioxide 25.0, Anion Gap 7, BUN 12, Creatinine 0.62, Estim Creat Clear Calc 77.27, Est GFR (MDRD) Af Amer 126, Est GFR (MDRD) Non-Af 104, BUN/Creatinine Ratio 19.2, Glucose 100, Calcium 8.8, Triglycerides 87, Cholesterol 163, LDL Cholesterol 99, VLDL Cholesterol 17, HDL Cholesterol 47 07/15/19 05:24: Free T3 pg/dL 1.7 L Current Medications Acetaminophen (Tylenol) 650 mg PO Q6H PRN PRN PRN Reason: Pain Score 1-10/Temp > 100.7 F Last Admin: 07/14/19 23:57 Dose: 650 mg Documented by: Al Hydroxide/Mg Hydroxide (Mylanta Ii) 30 ml PO Q6H PRN PRN PRN Reason: Gastric Burning Albuterol Sulfate (Ventolin Aerosols) 2.5 mg INHALATION Q2H PRN PRN PRN Reason: Dyspnea, wheezing Aspirin (Aspirin, Baby) 81 mg PO DAILY@0800 [facility] Last Admin: 07/15/19 09:37 Dose: 81 mg Documented by: Dextrose (D50w Syringe) 0 gm IV X1 PRN; Protocol PRN Reason: Hypoglycemia Enoxaparin Sodium (Lovenox) 40 mg SC DAILY [facility] Last Admin: 07/15/19 09:37 Dose: 40 mg Documented by: Fluticasone Propionate (Flonase Nasal [place]) 1 spray NASAL BID [facility] Last Admin: 07/15/19 09:37 Dose: 1 spray Documented by: Glucagon () 1 mg IM .X1 PRN PRN Reason: Hypoglycemia Guaifenesin (Robitussin) 20 ml PO Q4H PRN PRN PRN Reason: COUGH Hydralazine HCl (Apresoline Iv) 5 mg IV Q30M PRN PRN Reason: to maintain BP goals Labetalol HCl (Trandate) 10 - 20 mg IV Q10M PRN PRN PRN Reason: to maintain BP goals Levothyroxine Sodium (Synthroid) 125 mcg PO DAILY@0600 [facility] Last Admin: 07/15/19 06:53 Dose: 125 mcg Documented by: Magnesium Hydroxide (Milk Of Magnesia) 30 ml PO DAILY PRN PRN PRN Reason: Constipation Melatonin (Melatonin) 3 mg PO QHS PRN PRN PRN Reason: INSOMNIA Ondansetron HCl (Zofran) 4 mg IV Q8H PRN PRN PRN Reason: NAUSEA/VOMITING Pantoprazole Sodium (Protonix) 40 mg PO DAILY [facility] Last Admin: 07/15/19 09:38 Dose: 40 mg Documented by: Prochlorperazine Edisylate (Compazine Iv) 5 mg IV Q4H PRN PRN PRN Reason: Breakthrough Nausea/Vomiting Psyllium Hydrophilic Mucilloid (Metamucil) 1 packet PO DAILY PRN PRN PRN Reason: Constipation Senna/Docusate Sodium (Senokot-S, Rocio-Colace) 2 tablet PO BID PRN PRN PRN Reason: Constipation Throat Lozenges (Cepacol Sore Throat Lozenge) 1 lozenge MUCOUS MEM Q2H PRN PRN PRN Reason: SORE THROAT Discharge Diet: Low fat/ Low Cholesterol, 2000 mg Sodium Diet Discharge Activity: Return to Normal Activity Home Medications: Medications to take at Discharge Amlodipine [Norvasc] 5 mg PO DAILY 07/14/19 Apremilast [Otezla] 30 mg PO BID 07/14/19 Fluticasone 0.05% [Flonase Nasal [place]] 1 spray NASAL BID 07/14/19 Levothyroxine [Synthroid] 125 mcg PO DAILY 07/14/19 Olmesartan/Hydrochlorothiazide [Olmesartan-Hctz 40-12.5 mg Tab] 1 ea PO DAILY 07/14/19 Omeprazole 40 mg PO DAILY 07/14/19 Acetaminophen [Tylenol Tablet] 650 mg PO Q6H PRN PRN tab 07/15/19 Propranolol HCl [Inderal (Beta Ralph)] 40 mg PO BID #60 tab 07/15/19 Following Prescrptions Were Given to Patient: Propranolol HCl [Inderal (Beta Ralph)] 40 mg PO BID #60 tab Transmission Status: Received by [facility] Primary Care Physician: [facility] Doctor,Out of [NON-STAFF] - Please follow up with your Primary Care Physician in: 1-2 weeks Please Follow Up With: Kamran Julien MD - Neurology, re: migraines When: 2 weeks Disposition: Home Minutes spent on discharge:: 35 Patient Condition:: Stable Medical Necessity - Tobacco Use Smoking Status: Former smoker Tobacco Use: Non-smoker Meaningful Use Info Meaningful Use Diagnoses (Choose all that apply): None applicable <Terry Noyola - Last Filed: 07/15/19 17:21> Discharge Date and Diagnosis - Secondary Discharge Diagnosis Chronic Problems Hypertension (Chronic) Psoriatic arthritis (Chronic) Anxiety (Chronic) Hypothyroid (Chronic) GERD (gastroesophageal reflux disease) (Chronic) Former tobacco use (Chronic) Hospital Course and Treatment Summary of Care Provided: The patient is a 59 year old F with history of chronic sinusitis was admitted with bilateral facial paresthesia, dizziness, mild transient language deficit. She had TIA work-up with MRI brain no acute change. MRI head and neck were unremarkable. Tele?neurologist, SOC were consulted. Clinical diagnosis of migraine was made. Most probably side effect of Forteo is a which she is taking for psoriasis. Patient does not want to discontinue bottles but okay with taking pain medication for migraine. Propranolol 40 mg twice daily as prophylactic for migraine started by neurologist. Recommended to follow-up with outpatient neurologist. 2D echo was done EF 60%. Mild MR and TR. Discharge medication reconciliation done. Discharge follow-up instructions completed. Discharge process discussed with the patient and all questions were answered to patient's satisfaction. Total time spent, exact 35 minutes on discharge meds reconciliation, examination, coordination of care with nurses and ancillary staff, review of imaging and blood test and discussion with the patient on follow-up instructions Subjective: Seen and examined. Patient has history of chronic sinusitis But does not want to take antibiotic because of history of C. difficile. On nasal decongestant. Also had headache and dizziness. Patient also had brief difficulty in verbal output, thinking of words/mild language deficit but denies dysphagia or dysarthria. MRI brain no acute infarct. - Physical Exam Vitals/I&O's: Vital Signs Temp Pulse Resp BP Pulse Ox 97.8 F 77 12 135/67 H 99 07/15/19 10:30 07/15/19 10:30 07/15/19 10:30 07/15/19 10:30 07/15/19 10:30 Oxygen Delivery Method Room Air Weight: 184 lb 11.958 oz Body Mass Index (BMI) 33.7 Finger Stick Blood Glucose 104 Intake and Output for Last 24 Hours 07/13/19 07/14/19 07/15/19 23:59 23:59 23:59 Intake Total 650 / 650 Balance 650 / 650 General: Alert, Oriented x3, Cooperative HEENT: Atraumatic, PERRLA, EOMI, Normocephalic, - - Bilateral maxillary and frontal sinus tenderness more on left Oral: Dry Mucosa Neck: Supple, No JVD, Negative Carotid Bruits Lungs: Clear to auscultation, Normal air movement Cardiovascular: Regular rate, Regular Rhythm, Normal S1, Normal S2, No murmurs Abdomen: Bowel Sounds Present, Soft, Non Tender, Non-Distended Extremities: No edema, Capillary Refill Less than 3 Seconds Skin: No rashes, No breakdown Musculoskeletal: No Tenderness to Palpation of Joints or Extremities Neurological: Cranial nerves II-XII grossly intact, Deep Tendon Reflexes 2+/4 and Symmetrical, Neuro grossly intact, Motor Exam 5/5 strength throughout Psych/Mental Status: Normal Affect, Appropriate Laboratory Results 07/14/19 19:28: POC Glucose 104 07/14/19 20:54: WBC 14.2 H, RBC 4.80, Hgb 13.5, Hct 41.1, MCV 85.6, MCH 28.1, MCHC 32.8, RDW Std Deviation 44.5 H, RDW Coeff of Anatoly 14.3, Plt Count 218, MPV 11.2, Immature Gran % (Auto) 0.400, Neut % (Auto) 66.4, Lymph % (Auto) 24.8, Harney % (Auto) 6.6, Eos % (Auto) 1.2, Baso % (Auto) 0.6, Absolute Neuts (auto) 9.4 H, Absolute Lymphs (auto) 3.51, Nucleated RBC % 0 07/14/19 20:54: Sodium 140, Potassium 3.4 L, Chloride 107, Carbon Dioxide 28.0, Anion Gap 5, BUN 16, Creatinine 0.74, Estim Creat Clear Calc 64.74, Est GFR (MDRD) Af Amer 104, Est GFR (MDRD) Non-Af 86, BUN/Creatinine Ratio 21.7 H, Glucose 114 H, Calcium 9.3, Troponin I < 0.015 07/14/19 20:54: Magnesium 2.0, TSH 27.20 H, Free T4 1.26 07/14/19 20:54: Hemoglobin A1c 5.3 07/15/19 05:24: PT 13.1, INR 1.0, APTT 30.6 07/15/19 05:24: WBC 10.3, RBC 4.52, Hgb 12.5, Hct 39.0, MCV 86.3, MCH 27.7, MCHC 32.1, RDW Std Deviation 45.5 H, RDW Coeff of Anatoly 14.5, Plt Count 262, MPV 10.9, Immature Gran % (Auto) 0.300, Neut % (Auto) 61.4, Lymph % (Auto) 29.4, [place] % (Auto) 6.9, Eos % (Auto) 1.3, Baso % (Auto) 0.7, Absolute Neuts (auto) 6.3, Absolute Lymphs (auto) 3.02, Nucleated RBC % 0 07/15/19 05:24: Sodium 140, Potassium 3.7, Chloride 108 H, Carbon Dioxide 25.0, Anion Gap 7, BUN 12, Creatinine 0.62, Estim Creat Clear Calc 77.27, Est GFR (MDRD) Af Amer 126, Est GFR (MDRD) Non-Af 104, BUN/Creatinine Ratio 19.2, Glucose 100, Calcium 8.8, Triglycerides 87, Cholesterol 163, LDL Cholesterol 99, VLDL Cholesterol 17, HDL Cholesterol 47 07/15/19 05:24: Free T3 pg/dL 1.7 L
== END 2019-07-15 15:27 | disposition home or self-care (01) ==
LOC: ED 21:30 → PCU 21:57
PROVIDERS: Physician Assistant; Admitting Provider Family Medicine; Emergency Provider Emergency Medicine; PCP Family Medicine; Visit Provider Internal Medicine
DX: G43.109 Migraine with aura, not intractable, without status migrainosus (principal); K21.9 Gastro-esophageal reflux disease without esophagitis; I10 Essential (primary) hypertension; E66.9 Obesity, unspecified; E03.9 Hypothyroidism, unspecified; L40.50 Arthropathic psoriasis, unspecified; I08.1 Rheumatic disorders of both mitral and tricuspid valves; R29.701 NIHSS score 1; Z79.899 Other long term (current) drug therapy; Z79.51 Long term (current) use of inhaled steroids; Z87.891 Personal history of nicotine dependence; E87.6 Hypokalemia; Z68.33 Body mass index [BMI] 33.0-33.9, adult; J32.9 Chronic sinusitis, unspecified
CPT/HCPCS: 36415; 70450; 70544; 70547; 70551; 80048; 80061; 82962; 83036; 83735; 84439; 84443; 84481; 84484; 85025; 85610; 85730; 92523; 93005; 93306; 94762; 96372; 97802; 99218; 99251; 99284; A4216; G0378; G0463